=== PATIENT | male | born 1965 | race African-American/Black ===

== ENCOUNTER 2019-02-09 16:46 | Emergency (ER) | payer OTHER ==
[~2019-02-09] VITALS: Ht 180.3 cm; Wt 95.5 kg
[2019-02-09 17:49] LABS: BASOPHILS % (AUTO) 0.8 % (0.0-2.0); EOSINOPHILS % (AUTO) 1.4 % (1.0-6.0); HEMATOCRIT 40.1 % (41-53); HEMOGLOBIN 13.6 g/dL (13.5-17.5); LYMPHOCYTES # (AUTO) 1.6 K/uL (1.0-4.8); LYMPHOCYTES % (AUTO) 31.7 % (22.0-44.0); MEAN CORPUSCULAR HEMOGLOBIN 32.1 pg (26.0-34.0); MEAN CORPUSCULAR HGB CONC 33.8 G/dL (31.0-37.0); MEAN CORPUSCULAR VOLUME 95 fL (80-100); MONOCYTES # (AUTO) 0.5 K/uL (0.1-1.0); MONOCYTES % (AUTO) 10.1 % (2.0-9.0); NEUTROPHILS # (AUTO) 2.8 K/uL (1.8-7.7); PLATELET COUNT (AUTO) 152 K/uL (150-450); RED BLOOD CELL COUNT(AUTO) 4.22 MIL/uL (4.50-5.90); RED CELL DISTRIBUTION WIDTH 15.4 % (11.5-14.5)
[2019-02-09 17:54] LABS: ANION GAP 10 mmol/L (8-16); CALCIUM, TOTAL 9.2 mg/dL (8.8-10.5); CARBON DIOXIDE 26 mmol/L (22-29); CHLORIDE 104 mmol/L (98-107); CREATININE 1.02 mg/dL (0.60-1.30); GLOMERULAR FILTR. RATE CALC > 60 mL/min (>60); GLUCOSE,RANDOM 113 mg/dL (70-110); POTASSIUM 3.6 mmol/L (3.5-5.1); SODIUM SERUM 140 mmol/L (136-145); UREA NITROGEN, BLOOD 10 mg/dL (7-18)
[2019-02-09 17:57] LABS: D-DIMER 2.24 mg/L FEU (0.00-0.50); PROTHROMBIN TIME 10.3 SEC (9.4-11.6)
[2019-02-09 17:59] LABS: ALANINE AMINOTRANSFERASE 41 U/L (12-78); ALKALINE PHOSPHATASE 54 U/L (46-116); ASPARTATE AMINOTRANSFERASE 39 U/L (15-37); BILIRUBIN,TOTAL 0.5 mg/dL (0.1-1.0); TOTAL PROTEIN, SERUM 7.2 g/dL (6.4-8.2)
[2019-02-09] MEDS ORDERED: IOVERSOL 320 MG/ML 100 ML VIAL ONE (18:08)
[2019-02-09] MEDS ORDERED: SODIUM CHLORIDE 0.9% 100 ML ONE (18:08)
[2019-02-09 18:59] LABS: LIPASE 295 U/L (73-393)
[2019-02-09 19:28] LABS: APPEARANCE,URINE CLEAR (CLEAR); BILIRUBIN,URINE NEGATIVE (NEGATIVE); GLUCOSE, URINE (UA) NEGATIVE (NEGATIVE); KETONES,URINE NEGATIVE (NEGATIVE); LEUKOCYTE ESTERASE ,URINE NEGATIVE (NEGATIVE); NITRATE,URINE NEGATIVE (NEGATIVE); OCCULT BLOOD,URINE NEGATIVE (NEGATIVE); PROTEIN,URINE NEGATIVE (NEGATIVE); UROBILINOGEN,URINE 0.2 mg/dL (<=1.0)
[2019-02-09] MEDS ORDERED: ONDANSETRON HCL 4 MG/2 ML VIAL IVP PRN (22:15)
[2019-02-09] MEDS ORDERED: PANTOPRAZOLE SODIUM 40 MG/VIAL IVP SCH (22:15)
[2019-02-09] MEDS ORDERED: ZOLPIDEM TARTRATE 5 MG TABLET PO PRN (22:15)
[2019-02-09] MEDS ORDERED: INSULIN LISPRO 100 UNITS/ML SQ PRN ×2 (22:15→22:30)
[2019-02-09] MEDS ORDERED: GLUCAGON,HUMAN RECOMBINANT 1 MG VIAL IM PRN (22:15)
[2019-02-09] MEDS ORDERED: DEXTROSE 50%-WATER 25 GM/50 ML SYG IVP PRN (22:30)
[2019-02-10 04:13] VITALS: BP 127/65
== END 2019-02-10 06:25 | disposition left against medical advice (07) ==
LOC: EMS 16:49
DX: K92.2 Gastrointestinal hemorrhage, unspecified (principal); I82.402 Acute embolism and thrombosis of unspecified deep veins of left lower extremity; F19.10 Other psychoactive substance abuse, uncomplicated; F14.10 Cocaine abuse, uncomplicated; F17.210 Nicotine dependence, cigarettes, uncomplicated
CPT/HCPCS: 36415; 74177; 80053; 81003; 82271; 83690; 85025; 85379; 85610; 85730; 93971; 96374; 99284; C9113; J7050; Q9967

== ENCOUNTER 2023-03-26 18:33 | Inpatient (IN) | payer MEDICAID, OTHER ==
[~2023-03-26] VITALS: Ht 177.8 cm; Wt 84.0 kg
[2023-03-26 19:23] LABS: BASOPHILS % (AUTO) 0.5 % (0.0-2.0); EOSINOPHILS % (AUTO) 0.8 % (1.0-6.0); HEMATOCRIT 35.9 % (41-53); HEMOGLOBIN 12.1 g/dL (13.5-17.5); LYMPHOCYTES # (AUTO) 1.5 K/uL (1.0-4.8); LYMPHOCYTES % (AUTO) 27.7 % (22.0-44.0); MEAN CORPUSCULAR HEMOGLOBIN 33.9 pg (26.0-34.0); MEAN CORPUSCULAR HGB CONC 33.6 G/dL (31.0-37.0); MEAN CORPUSCULAR VOLUME 101 fL (80-100); MONOCYTES # (AUTO) 0.5 K/uL (0.1-1.0); MONOCYTES % (AUTO) 10.1 % (2.0-9.0); NEUTROPHILS # (AUTO) 3.2 K/uL (1.8-7.7); NEUTROPHILS % (AUTO) 60.9 % (40.0-70.0); PLATELET COUNT (AUTO) 176 K/uL (150-450); RED BLOOD CELL COUNT(AUTO) 3.56 MIL/uL (4.50-5.90); RED CELL DISTRIBUTION WIDTH 14.7 % (11.5-14.5)
[2023-03-26 19:32] LABS: ANION GAP 9 mmol/L (8-16); CALCIUM, TOTAL 9.4 mg/dL (8.8-10.5); CARBON DIOXIDE 25 mmol/L (22-29); CHLORIDE 104 mmol/L (98-107); CREATININE 0.84 mg/dL (0.60-1.30); GLOMERULAR FILTR. RATE CALC > 60 mL/min (>60); GLUCOSE,RANDOM 98 mg/dL (70-110); POTASSIUM 3.9 mmol/L (3.5-5.1); SODIUM SERUM 138 mmol/L (136-145)
[2023-03-26 19:38] LABS: ALANINE AMINOTRANSFERASE 31 U/L (12-78); ALBUMIN 3.7 g/dL (3.4-5.0); ALKALINE PHOSPHATASE 71 U/L (46-116); ASPARTATE AMINOTRANSFERASE 41 U/L (15-37); BILIRUBIN,TOTAL 0.6 mg/dL (0.1-1.0); TOTAL PROTEIN, SERUM 6.9 g/dL (6.4-8.2)
[2023-03-26 20:03] LABS: COVID AG,FIA SOURCE NASOPHARYNGEAL
[2023-03-26] MEDS ORDERED: ACETAMINOPHEN 500 MG TABLET PO ONE (21:15)
[2023-03-26] MEDS ORDERED: LORazepam 2 MG TABLET PO PRN (21:30)
[2023-03-26] MEDS ORDERED: ZOLPIDEM TARTRATE 10 MG TABLET PO PRN (21:30)
[2023-03-26] MEDS ORDERED: HALOPERIDOL 5 MG TABLET PO PRN (21:30)
[2023-03-27] VITALS (10 sets, daily range): BP systolic 106–146; BP diastolic 68–95; PULSE 76–81; RESP 16–18; TEMP 97.2–98.5; O2SAT 96–100
[2023-03-27] MEDS: BACITRACIN 28 GM OINTMENT TP SCH (12:59)
[2023-03-27] MEDS ORDERED: MAGNESIUM HYDROXIDE SUSPENSION 30 ML UDCUP PO PRN (14:30)
[2023-03-27] MEDS ORDERED: TUBERCULIN, PURIFIED PROTEIN DERIVATIVE 5 TU/0.1 ML SYRINGE ID ONE (14:30)
[2023-03-27] MEDS ORDERED: IBUPROFEN 600 MG TABLET PO PRN (14:30)
[2023-03-27] MEDS ORDERED: MAG HYDROX/AL HYDROX/SIMETH ES 30 ML SUSPENSION UDCUP PO PRN (14:30)
[2023-03-27] MEDS ORDERED: GuaiFENesin/D-METHORPHAN [SUGAR-FREE] 200-20MG/10 ML SYRUP UDCUP PO PRN (14:30)
[2023-03-27] MEDS ORDERED: ACETAMINOPHEN 325 MG TABLET PO PRN (14:30)
[2023-03-27] MEDS ORDERED: HydrOXYzine PAMOATE 50 MG CAPSULE PO PRN (14:30)
[2023-03-27] MEDS ORDERED: LOPERAMIDE HCL 2 MG CAPSULE PO PRN (14:30)
[2023-03-27] MEDS ORDERED: ACETAMINOPHEN 500 MG TABLET PO PRN (14:30)
[2023-03-27] MEDS ORDERED: QUEtiapine FUMARATE 100 MG TABLET PO PRN (14:30)
[2023-03-27] MEDS ORDERED: PROMETHAZINE HCL 25 MG TABLET PO PRN (14:30)
[2023-03-27] MEDS ORDERED: LORazepam 2 MG TABLET PO PRN (14:30)
[2023-03-27] MEDS ORDERED: CYANOCOBALAMIN 1,000 MCG/ML VIAL IM ONE (14:30)
[2023-03-27] MEDS: THIAMINE 100 MG TABLET PO SCH (16:57)
[2023-03-27] MEDS: MELATONIN 5 MG TABLET PO SCH (21:00)
[2023-03-27] MEDS: QUEtiapine FUMARATE 200 MG TABLET PO SCH (21:00)
[2023-03-28] VITALS (9 sets, daily range): BP systolic 105–129; BP diastolic 62–85; PULSE 72–92; RESP 16–19; TEMP 97.3–97.8; O2SAT 97–100
[2023-03-28] MEDS ORDERED: LORazepam 2 MG TABLET PO PRN (07:00)
[2023-03-28 07:22] LABS: HEMOGLOBIN A1C 5.5 % (3.8-5.6)
[2023-03-28 07:32] LABS: CHOL/HDL RATIO 1.9 (4.2-7.3); CHOLESTEROL 189 mg/dL (131-200); FREE T4 (FREE THYROXINE) 0.72 ng/dL (0.76-1.46); HDL CHOLESTEROL 101 mg/dL (40-60); LDL CHOL (CALC.) 80 mg/dL (0-130); TRIGLYCERIDES 41 mg/dL (15-150)
[2023-03-28 08:35] LABS: C-REACTIVE PROTEIN QUANT < 0.05 mg/dL (0.00-0.30); THYROID STIMULATING HORMONE 1.72 uIU/mL (0.36-3.74)
[2023-03-28 08:45] LABS: URIC ACID 6.9 mg/dL (2.6-7.2)
[2023-03-28] MEDS: OMEGA-3/DHA/EPA/FISH OIL 1,000 MG CAPSULE PO SCH (09:35)
[2023-03-28] MEDS: LORazepam 2 MG TABLET PO SCH ×4 (09:35→20:50)
[2023-03-28] MEDS: CEPHALEXIN MONOHYDRATE 500 MG CAPSULE PO SCH ×4 (09:36→20:50)
[2023-03-28] MEDS: MULTIVITAMINS WITH MINERALS, THERAPEUTIC TABLET PO SCH (09:36)
[2023-03-28] MEDS: THIAMINE 100 MG TABLET PO SCH ×2 (09:36→17:31)
[2023-03-28] MEDS: NALTREXONE HCL 50 MG TABLET PO SCH (09:36)
[2023-03-28] MEDS: SERTRALINE HCL 50 MG TABLET PO SCH (09:37)
[2023-03-28] MEDS: FOLIC ACID 1 MG TABLET PO SCH (09:37)
[2023-03-28] MEDS: BACITRACIN 28 GM OINTMENT TP SCH (09:52)
[2023-03-28] MEDS: QUEtiapine FUMARATE 200 MG TABLET PO SCH (20:50)
[2023-03-28] MEDS: MELATONIN 5 MG TABLET PO SCH (20:51)
[2023-03-29 02:11] VITALS: BP 120/79; PULSE 76; RESP 17; TEMP 97; O2SAT 100
[2023-03-29 05:37] VITALS: BP 126/87; PULSE 79; RESP 18; TEMP 97.1; O2SAT 99
[2023-03-29 08:28] VITALS: BP 111/77; PULSE 81; RESP 18; TEMP 97.6; O2SAT 100
[2023-03-29 08:35] VITALS: BP 111/77; PULSE 81; RESP 18; TEMP 97.6
[2023-03-29] MEDS: MULTIVITAMINS WITH MINERALS, THERAPEUTIC TABLET PO SCH (09:59)
[2023-03-29] MEDS: LORazepam 2 MG TABLET PO SCH ×4 (09:59→20:44)
[2023-03-29] MEDS: SERTRALINE HCL 50 MG TABLET PO SCH (10:00)
[2023-03-29] MEDS: CEPHALEXIN MONOHYDRATE 500 MG CAPSULE PO SCH ×4 (10:00→20:44)
[2023-03-29] MEDS: BACITRACIN 28 GM OINTMENT TP SCH (10:00)
[2023-03-29] MEDS: NALTREXONE HCL 50 MG TABLET PO SCH (10:00)
[2023-03-29] MEDS: OMEGA-3/DHA/EPA/FISH OIL 1,000 MG CAPSULE PO SCH (10:00)
[2023-03-29] MEDS: THIAMINE 100 MG TABLET PO SCH ×2 (10:00→17:55)
[2023-03-29] MEDS: FOLIC ACID 1 MG TABLET PO SCH (10:00)
[2023-03-29] MEDS: MUPIROCIN CALCIUM 2% 22 GM OINTMENT NASAL SCH ×2 (10:09→17:56)
[2023-03-29] MEDS: QUEtiapine FUMARATE 300 MG TABLET PO SCH (20:44)
[2023-03-29] MEDS: MELATONIN 5 MG TABLET PO SCH (20:44)
[2023-03-29 22:17] VITALS: RESP 18
[2023-03-29 22:18] VITALS: RESP 18
[2023-03-30] MEDS ORDERED: LORazepam 1 MG TABLET PO PRN (07:00)
[2023-03-30 09:17] VITALS: BP 114/86; PULSE 61; RESP 18; TEMP 97.5; O2SAT 98
[2023-03-30] MEDS: LORazepam 1 MG TABLET PO SCH ×4 (10:41→20:36)
[2023-03-30] MEDS: OMEGA-3/DHA/EPA/FISH OIL 1,000 MG CAPSULE PO SCH (10:41)
[2023-03-30] MEDS: MUPIROCIN CALCIUM 2% 22 GM OINTMENT NASAL SCH ×2 (10:41→17:25)
[2023-03-30] MEDS: NALTREXONE HCL 50 MG TABLET PO SCH (10:42)
[2023-03-30] MEDS: CEPHALEXIN MONOHYDRATE 500 MG CAPSULE PO SCH ×4 (10:42→20:36)
[2023-03-30] MEDS: MULTIVITAMINS WITH MINERALS, THERAPEUTIC TABLET PO SCH (10:42)
[2023-03-30] MEDS: FOLIC ACID 1 MG TABLET PO SCH (10:42)
[2023-03-30] MEDS: BACITRACIN 28 GM OINTMENT TP SCH (10:43)
[2023-03-30] MEDS: THIAMINE 100 MG TABLET PO SCH ×2 (10:43→17:15)
[2023-03-30] MEDS: SERTRALINE HCL 50 MG TABLET PO SCH (10:43)
[2023-03-30] MEDS ORDERED: LOPERAMIDE HCL 2 MG CAPSULE PO PRN (14:30)
[2023-03-30 15:57] LABS: APPEARANCE,URINE CLEAR (CLEAR); BILIRUBIN,URINE NEGATIVE (NEGATIVE); GLUCOSE, URINE (UA) NEGATIVE (NEGATIVE); KETONES,URINE NEGATIVE (NEGATIVE); LEUKOCYTE ESTERASE ,URINE NEGATIVE (NEGATIVE); NITRATE,URINE NEGATIVE (NEGATIVE); OCCULT BLOOD,URINE NEGATIVE (NEGATIVE); PROTEIN,URINE TRACE mg/dL (NEGATIVE); SPECIFIC GRAVITIY, URINE 1.022 (1.003-1.030); UROBILINOGEN,URINE <=1.0 mg/dL (<=1.0)
[2023-03-30 16:07] LABS: AMPHET/METH SCREEN,URINE NEGATIVE (NEGATIVE); BARBITURATE SCREEN, URINE NEGATIVE (NEGATIVE); BENZODIAZEPINES SCREEN,URINE NEGATIVE (NEGATIVE); CANNABINOID SCREEN,URINE NEGATIVE (NEGATIVE); COCAINE SCREEN,URINE NEGATIVE (NEGATIVE); METHADONE SCREEN, URINE NEGATIVE (NEGATIVE); OPIATE SCREEN,URINE NEGATIVE (NEGATIVE); PHENCYCLIDINE SCREEN,URINE NEGATIVE (NEGATIVE)
[2023-03-30 20:30] VITALS: BP 104/61; PULSE 86; RESP 18; TEMP 98; O2SAT 100
[2023-03-30] MEDS: MELATONIN 5 MG TABLET PO SCH (20:36)
[2023-03-30] MEDS: QUEtiapine FUMARATE 300 MG TABLET PO SCH (20:36)
[2023-03-31] MEDS ORDERED: LORazepam 1 MG TABLET PO PRN (07:00)
[2023-03-31 08:00] VITALS: BP 90/58; PULSE 92; RESP 18; TEMP 97.1; O2SAT 100
[2023-03-31] MEDS: OMEGA-3/DHA/EPA/FISH OIL 1,000 MG CAPSULE PO SCH (08:08)
[2023-03-31] MEDS: MUPIROCIN CALCIUM 2% 22 GM OINTMENT NASAL SCH ×2 (08:08→16:15)
[2023-03-31] MEDS: CEPHALEXIN MONOHYDRATE 500 MG CAPSULE PO SCH ×4 (08:08→21:01)
[2023-03-31] MEDS: NALTREXONE HCL 50 MG TABLET PO SCH (08:09)
[2023-03-31] MEDS: THIAMINE 100 MG TABLET PO SCH ×2 (08:09→16:15)
[2023-03-31] MEDS: FOLIC ACID 1 MG TABLET PO SCH (08:09)
[2023-03-31] MEDS: SERTRALINE HCL 100 MG TABLET PO SCH (08:09)
[2023-03-31] MEDS: MULTIVITAMINS WITH MINERALS, THERAPEUTIC TABLET PO SCH (08:09)
[2023-03-31] MEDS: BACITRACIN 28 GM OINTMENT TP SCH (08:09)
[2023-03-31] MEDS: CLOTRIMAZOLE 1% 15 GM CREAM TP SCH (16:15)
[2023-03-31 20:39] VITALS: BP 123/82; PULSE 76; RESP 18; TEMP 98.1; O2SAT 98
[2023-03-31] MEDS: MELATONIN 5 MG TABLET PO SCH (21:01)
[2023-03-31] MEDS: QUEtiapine FUMARATE 300 MG TABLET PO SCH (21:01)
[2023-03-31 22:43] VITALS: BP 123/82; PULSE 76; RESP 18; TEMP 98.1; O2SAT 98
[2023-04-01 08:00] VITALS: BP 112/81; PULSE 85; RESP 20; TEMP 98.6; O2SAT 96
[2023-04-01] MEDS: BACITRACIN 28 GM OINTMENT TP SCH (09:31)
[2023-04-01] MEDS: CLOTRIMAZOLE 1% 15 GM CREAM TP SCH ×2 (09:31→17:22)
[2023-04-01] MEDS: MUPIROCIN CALCIUM 2% 22 GM OINTMENT NASAL SCH ×2 (09:32→17:23)
[2023-04-01] MEDS: MULTIVITAMINS WITH MINERALS, THERAPEUTIC TABLET PO SCH (09:32)
[2023-04-01] MEDS: NALTREXONE HCL 50 MG TABLET PO SCH (09:37)
[2023-04-01] MEDS: OMEGA-3/DHA/EPA/FISH OIL 1,000 MG CAPSULE PO SCH (09:38)
[2023-04-01] MEDS: CEPHALEXIN MONOHYDRATE 500 MG CAPSULE PO SCH ×4 (09:38→20:58)
[2023-04-01] MEDS: FOLIC ACID 1 MG TABLET PO SCH (09:38)
[2023-04-01] MEDS: THIAMINE 100 MG TABLET PO SCH ×2 (09:38→17:22)
[2023-04-01] MEDS: SERTRALINE HCL 100 MG TABLET PO SCH (09:40)
[2023-04-01 20:54] VITALS: BP 115/88; PULSE 85; RESP 19; TEMP 97.9; O2SAT 100
[2023-04-01] MEDS: QUEtiapine FUMARATE 300 MG TABLET PO SCH (20:58)
[2023-04-01] MEDS: MELATONIN 5 MG TABLET PO SCH (20:58)
[2023-04-02] MEDS: OMEGA-3/DHA/EPA/FISH OIL 1,000 MG CAPSULE PO SCH (08:35)
[2023-04-02] MEDS: SERTRALINE HCL 100 MG TABLET PO SCH (08:35)
[2023-04-02] MEDS: THIAMINE 100 MG TABLET PO SCH ×2 (08:36→16:40)
[2023-04-02] MEDS: MULTIVITAMINS WITH MINERALS, THERAPEUTIC TABLET PO SCH (08:36)
[2023-04-02] MEDS: BACITRACIN 28 GM OINTMENT TP SCH (08:37)
[2023-04-02] MEDS: RIVAROXABAN 20 MG TABLET PO SCH (08:37)
[2023-04-02] MEDS: NALTREXONE HCL 50 MG TABLET PO SCH (08:37)
[2023-04-02] MEDS: FOLIC ACID 1 MG TABLET PO SCH (08:37)
[2023-04-02] MEDS: MUPIROCIN CALCIUM 2% 22 GM OINTMENT NASAL SCH ×2 (08:38→16:39)
[2023-04-02] MEDS: CLOTRIMAZOLE 1% 15 GM CREAM TP SCH ×2 (08:39→16:39)
[2023-04-02 13:08] VITALS: BP 117/74; PULSE 94; RESP 18; TEMP 98; O2SAT 99
[2023-04-02] MEDS: MELATONIN 5 MG TABLET PO SCH (20:17)
[2023-04-02] MEDS: QUEtiapine FUMARATE 300 MG TABLET PO SCH (20:17)
[2023-04-02 20:54] VITALS: BP 111/67; PULSE 85; RESP 19; TEMP 98; O2SAT 100
[2023-04-03 05:39] VITALS: BP 120/75; PULSE 84; RESP 18; TEMP 97.5
[2023-04-03 06:34] VITALS: RESP 18
[2023-04-03 08:00] VITALS: BP 94/50; PULSE 76; RESP 16; TEMP 97.2; O2SAT 97
[2023-04-03] MEDS: FOLIC ACID 1 MG TABLET PO SCH (08:52)
[2023-04-03] MEDS: RIVAROXABAN 20 MG TABLET PO SCH (08:52)
[2023-04-03] MEDS: MULTIVITAMINS WITH MINERALS, THERAPEUTIC TABLET PO SCH (08:52)
[2023-04-03] MEDS: THIAMINE 100 MG TABLET PO SCH ×2 (08:52→16:33)
[2023-04-03] MEDS: SERTRALINE HCL 100 MG TABLET PO SCH (08:52)
[2023-04-03] MEDS: NALTREXONE HCL 50 MG TABLET PO SCH (08:52)
[2023-04-03] MEDS: OMEGA-3/DHA/EPA/FISH OIL 1,000 MG CAPSULE PO SCH (08:52)
[2023-04-03] MEDS: CLOTRIMAZOLE 1% 15 GM CREAM TP SCH ×2 (08:54→16:33)
[2023-04-03] MEDS: BACITRACIN 28 GM OINTMENT TP SCH (08:54)
[2023-04-03] MEDS: MUPIROCIN CALCIUM 2% 22 GM OINTMENT NASAL SCH ×2 (09:21→16:33)
[2023-04-03] MEDS: COLCHICINE 0.6 MG TABLET PO SCH (11:08)
[2023-04-03] MEDS: ALLOPURINOL 100 MG TABLET PO SCH (11:08)
[2023-04-03 20:40] VITALS: BP 108/69; PULSE 84; RESP 18; TEMP 97.9; O2SAT 99
[2023-04-03] MEDS: MELATONIN 5 MG TABLET PO SCH (20:51)
[2023-04-03] MEDS ORDERED: QUEtiapine FUMARATE 200 MG TABLET PO SCH ×2 (21:00)
[2023-04-03] MEDS ORDERED: LURASIDONE HCL 20 MG TABLET PO PRN (21:45)
[2023-04-04] MEDS: LURASIDONE HCL 40 MG TABLET PO SCH (06:56)
[2023-04-04 08:30] VITALS: BP 111/69; PULSE 77; RESP 17; TEMP 97.2; O2SAT 100
[2023-04-04] MEDS: RIVAROXABAN 20 MG TABLET PO SCH (08:31)
[2023-04-04] MEDS: COLCHICINE 0.6 MG TABLET PO SCH (08:31)
[2023-04-04] MEDS: NALTREXONE HCL 50 MG TABLET PO SCH (08:31)
[2023-04-04] MEDS: FOLIC ACID 1 MG TABLET PO SCH (08:31)
[2023-04-04] MEDS: ALLOPURINOL 100 MG TABLET PO SCH (08:31)
[2023-04-04] MEDS: MULTIVITAMINS WITH MINERALS, THERAPEUTIC TABLET PO SCH (08:31)
[2023-04-04] MEDS: SERTRALINE HCL 100 MG TABLET PO SCH (08:31)
[2023-04-04] MEDS: THIAMINE 100 MG TABLET PO SCH ×2 (08:31→16:12)
[2023-04-04] MEDS: OMEGA-3/DHA/EPA/FISH OIL 1,000 MG CAPSULE PO SCH (08:32)
[2023-04-04] MEDS: BACITRACIN 28 GM OINTMENT TP SCH (08:34)
[2023-04-04] MEDS: CLOTRIMAZOLE 1% 15 GM CREAM TP SCH ×2 (08:34→16:32)
[2023-04-04] MEDS: MUPIROCIN CALCIUM 2% 22 GM OINTMENT NASAL SCH ×2 (08:34→16:32)
[2023-04-04] MEDS: MELATONIN 5 MG TABLET PO SCH (20:30)
[2023-04-04 20:55] VITALS: BP 117/69; PULSE 76; RESP 20; TEMP 97.9; O2SAT 98
[2023-04-05] MEDS: LURASIDONE HCL 40 MG TABLET PO SCH (06:36)
[2023-04-05] MEDS: RIVAROXABAN 20 MG TABLET PO SCH (08:19)
[2023-04-05] MEDS: ALLOPURINOL 100 MG TABLET PO SCH (08:19)
[2023-04-05] MEDS: MULTIVITAMINS WITH MINERALS, THERAPEUTIC TABLET PO SCH (08:19)
[2023-04-05] MEDS: THIAMINE 100 MG TABLET PO SCH ×2 (08:19→16:16)
[2023-04-05] MEDS: NALTREXONE HCL 50 MG TABLET PO SCH (08:19)
[2023-04-05] MEDS: COLCHICINE 0.6 MG TABLET PO SCH (08:19)
[2023-04-05] MEDS: FOLIC ACID 1 MG TABLET PO SCH (08:19)
[2023-04-05] MEDS: OMEGA-3/DHA/EPA/FISH OIL 1,000 MG CAPSULE PO SCH (08:19)
[2023-04-05] MEDS: SERTRALINE HCL 100 MG TABLET PO SCH (08:20)
[2023-04-05] MEDS: CLOTRIMAZOLE 1% 15 GM CREAM TP SCH ×2 (08:20→16:16)
[2023-04-05] MEDS: BACITRACIN 28 GM OINTMENT TP SCH (08:20)
[2023-04-05 10:32] VITALS: BP 106/62; PULSE 85; RESP 18; TEMP 97.8; O2SAT 98
[2023-04-05] MEDS ORDERED: QUEtiapine FUMARATE 100 MG TABLET PO PRN (17:15)
[2023-04-05] MEDS: MELATONIN 5 MG TABLET PO SCH (20:32)
[2023-04-05 20:40] VITALS: TEMP 97.8
[2023-04-05] MEDS ORDERED: QUEtiapine FUMARATE 300 MG TABLET PO SCH (21:00)
[2023-04-05] MEDS ORDERED: QUEtiapine FUMARATE 200 MG TABLET PO SCH (21:00)
[2023-04-06 08:50] VITALS: BP 123/81; PULSE 95; RESP 18; TEMP 97.1; O2SAT 100
[2023-04-06] MEDS: MULTIVITAMINS WITH MINERALS, THERAPEUTIC TABLET PO SCH (08:52)
[2023-04-06] MEDS: QUEtiapine FUMARATE 25 MG TABLET PO SCH ×3 (08:52→16:14)
[2023-04-06] MEDS: OMEGA-3/DHA/EPA/FISH OIL 1,000 MG CAPSULE PO SCH (08:52)
[2023-04-06] MEDS: THIAMINE 100 MG TABLET PO SCH (08:52)
[2023-04-06] MEDS: COLCHICINE 0.6 MG TABLET PO SCH (08:52)
[2023-04-06] MEDS: SERTRALINE HCL 100 MG TABLET PO SCH (08:52)
[2023-04-06] MEDS: RIVAROXABAN 20 MG TABLET PO SCH (08:52)
[2023-04-06] MEDS: FOLIC ACID 1 MG TABLET PO SCH (08:52)
[2023-04-06] MEDS: CLOTRIMAZOLE 1% 15 GM CREAM TP SCH ×2 (08:53→16:15)
[2023-04-06] MEDS: NALTREXONE HCL 50 MG TABLET PO SCH (08:53)
[2023-04-06] MEDS: BACITRACIN 28 GM OINTMENT TP SCH (08:53)
[2023-04-06] MEDS: ALLOPURINOL 100 MG TABLET PO SCH (08:53)
[2023-04-06 14:38] LABS: COVID AG,FIA SOURCE NASAL SWAB
[2023-04-06] MEDS ORDERED: QUET25TA36 PO (16:10)
[2023-04-06] MEDS ORDERED: NALT50TA PO (16:10)
[2023-04-06] MEDS ORDERED: SERT-440 PO (16:10)
[2023-04-06] MEDS ORDERED: OMEG-135 PO (16:10)
[2023-04-06] MEDS ORDERED: QUET300T19 PO (16:10)
[2023-04-06] MEDS ORDERED: MELA5TAB40 PO (16:10)
== END 2023-04-06 18:20 | disposition home or self-care (01) | DRG 750 ==
LOC: EMS 18:33 → 3EI 22:30 → UNDOADMIN 22:31
PROVIDERS: ADMIT Psychiatry & Neurology Psychiatry; ATTEND Psychiatry & Neurology Psychiatry
DX: F25.1 Schizoaffective disorder, depressive type (principal); G93.41 Metabolic encephalopathy; I82.502 Chronic embolism and thrombosis of unspecified deep veins of left lower extremity; S91.301A Unspecified open wound, right foot, initial encounter; F10.20 Alcohol dependence, uncomplicated; F17.210 Nicotine dependence, cigarettes, uncomplicated; Z20.822 Contact with and (suspected) exposure to COVID-19; R45.851 Suicidal ideations; D64.9 Anemia, unspecified; R79.89 Other specified abnormal findings of blood chemistry; F32.9 Major depressive disorder, single episode, unspecified; F41.9 Anxiety disorder, unspecified; X58.XXXA Exposure to other specified factors, initial encounter; Y93.89 Activity, other specified; Y92.89 Other specified places as the place of occurrence of the external cause; Y99.8 Other external cause status; Z59.00 Homelessness unspecified; Z79.01 Long term (current) use of anticoagulants; Z91.148 Patient's other noncompliance with medication regimen for other reason; Z95.828 Presence of other vascular implants and grafts
CPT/HCPCS: 80053; 80061; 80307; 81003; 83036; 84439; 84443; 84550; 85025; 85651; 86140; 86592; 87081; 99285; G0480; J3420; Q9967